=== PATIENT | male | born 1970 | race Caucasian/White ===

== ENCOUNTER 2018-12-25 23:19 | Emergency (ER) | payer SELFPAY ==
[~2018-12-25] VITALS: Ht 167.6 cm; Wt 97.5 kg
[2018-12-25 23:28] VITALS: Ht 167.6 cm; Wt 97.5 kg
[2018-12-26 00:08] LABS: BASOPHIL % 0.3 % (0-2); PLATELET COUNT 230 x10^3mcL (130-400); RED CELL DISTRIBUTION WIDTH 13.3 % (11.5-14.5)
[2018-12-26 00:22] LABS: CALCIUM 8.5 mg/dL (8.5-10.1); CARBON DIOXIDE 29.3 mmol/L (21-32); CHLORIDE SERUM 105 mmol/L (98-107); CREATININE SERUM 0.8 mg/dL (0.7-1.3); GFR1 > 60 mL/min; GLUCOSE SERUM 158 mg/dL (74-106); POTASSIUM SERUM 3.4 mmol/L (3.5-5.1); SODIUM SERUM 142 mmol/L (136-145)
[2018-12-26 00:26] LABS: ALBUMIN 3.9 g/dL (3.4-5.0); ALKALINE PHOSPHATASE 78 U/L (46-116); ALT/SGPT 89 U/L (16-63); AST/SGOT 61 U/L (15-37); BILIRUBIN TOTAL 0.7 mg/dL (0.20-1.00); LIPASE 152 IU/L (73-393); TOTAL PROTEIN, SERUM 7.8 g/dL (6.4-8.2)
[2018-12-26 01:53] VITALS: BP 146/93
== END 2018-12-26 01:53 | disposition home or self-care (01) ==
LOC: ED 23:19
PROVIDERS: Emergency Medicine
DX: K29.70 Gastritis, unspecified, without bleeding (principal)
CPT/HCPCS: 36415; J7030; Q0092

== ENCOUNTER 2019-06-03 03:30 | Emergency (ER) | payer MEDICAID ==
[~2019-06-03] VITALS: Ht 167.6 cm; Wt 93.4 kg
[2019-06-03 03:44] VITALS: Ht 167.6 cm; Wt 93.4 kg
[2019-06-03 04:22] LABS: BASOPHIL % 0.5 % (0-2); PLATELET COUNT 362 x10^3mcL (130-400)
[2019-06-03 04:40] LABS: CALCIUM 9.1 mg/dL (8.5-10.1); CARBON DIOXIDE 27.7 mmol/L (21-32); CHLORIDE SERUM 101 mmol/L (98-107); CREATININE SERUM 0.8 mg/dL (0.7-1.3); GFR1 > 60 mL/min; GLUCOSE SERUM 165 mg/dL (74-106); POTASSIUM SERUM 3.3 mmol/L (3.5-5.1); SODIUM SERUM 139 mmol/L (136-145)
[2019-06-03 04:45] LABS: ALBUMIN 3.9 g/dL (3.4-5.0); ALKALINE PHOSPHATASE 108 U/L (46-116); ALT/SGPT 117 U/L (16-63); AST/SGOT 65 U/L (15-37); BILIRUBIN TOTAL 0.71 mg/dL (0.20-1.00); LIPASE 214 IU/L (73-393)
[2019-06-03 05:01] LABS: TOTAL PROTEIN, SERUM 8.6 g/dL (6.4-8.2)
[2019-06-03 10:00] VITALS: BP 153/103
== END 2019-06-03 10:00 | disposition home or self-care (01) ==
LOC: ED 03:30
DX: K80.20 Calculus of gallbladder without cholecystitis without obstruction (principal)
CPT/HCPCS: J2270; J3490; J7030; Q0092

== ENCOUNTER 2019-08-16 11:58 | Inpatient (IN) | payer SELFPAY ==
[~2019-08-16] VITALS: Ht 170.2 cm; Wt 92.5 kg
[2019-08-16 12:23] VITALS: Ht 170.2 cm; Wt 92.5 kg
[2019-08-16 13:23] LABS: BASOPHIL % 0.2 % (0-2); PLATELET COUNT 224 x10^3mcL (130-400); RED CELL DISTRIBUTION WIDTH 13.9 % (11.5-14.5)
[2019-08-16 13:47] LABS: CALCIUM 8.7 mg/dL (8.5-10.1); CARBON DIOXIDE 31.3 mmol/L (21-32); CHLORIDE SERUM 105 mmol/L (98-107); CREATININE SERUM 0.9 mg/dL (0.7-1.3); GFR1 > 60 mL/min; GLUCOSE SERUM 174 mg/dL (74-106); POTASSIUM SERUM 3.8 mmol/L (3.5-5.1); SODIUM SERUM 140 mmol/L (136-145)
[2019-08-16 13:51] LABS: ALBUMIN 3.8 g/dL (3.4-5.0); ALKALINE PHOSPHATASE 127 U/L (46-116); ALT/SGPT 63 U/L (16-63); AST/SGOT 90 U/L (15-37); BILIRUBIN TOTAL 1.68 mg/dL (0.20-1.00); LIPASE 156 IU/L (73-393); TOTAL PROTEIN, SERUM 7.9 g/dL (6.4-8.2)
[2019-08-16 17:32] LABS: microscopic required? NO
[2019-08-16 17:39] LABS: urine erythrocyte NEGATIVE (NEGATIVE)
[2019-08-16 17:39] LABS: CHOLESTEROL/HDL RATIO 4.6
[2019-08-16 17:53] VITALS: BP 130/87
[2019-08-16 20:35] VITALS: BP 132/76
[2019-08-17 05:20] VITALS: BP 115/72
[2019-08-17 06:29] LABS: ALKALINE PHOSPHATASE 118 U/L (46-116); ALT/SGPT 118 U/L (16-63); AST/SGOT 134 U/L (15-37); BILIRUBIN TOTAL 4.8 mg/dL (0.20-1.00); CARBON DIOXIDE 31.3 mmol/L (21-32); CHLORIDE SERUM 106 mmol/L (98-107); CREATININE SERUM 0.8 mg/dL (0.7-1.3); GFR1 > 60 mL/min; GLUCOSE SERUM 108 mg/dL (74-106); MAGNESIUM 2.3 mg/dL (1.8-2.4); PHOSPHOROUS 3.2 mg/dL (2.5-4.9); POTASSIUM SERUM 3.7 mmol/L (3.5-5.1); SODIUM SERUM 140 mmol/L (136-145); TOTAL PROTEIN, SERUM 6.9 g/dL (6.4-8.2)
[2019-08-17 06:30] LABS: ALBUMIN 3.2 g/dL (3.4-5.0)
[2019-08-17 06:34] LABS: BASOPHIL % 0.4 % (0-2); PLATELET COUNT 209 x10^3mcL (130-400); RED CELL DISTRIBUTION WIDTH 14.3 % (11.5-14.5)
[2019-08-17 08:44] VITALS: BP 121/75
[2019-08-17 13:21] VITALS: BP 128/76
[2019-08-17 16:40] VITALS: BP 125/83
[2019-08-17 20:52] VITALS: BP 149/88
[2019-08-18 05:54] VITALS: BP 150/92
[2019-08-18 07:24] LABS: ALBUMIN 3.7 g/dL (3.4-5.0); ALKALINE PHOSPHATASE 171 U/L (46-116); ALT/SGPT 131 U/L (16-63); AST/SGOT 122 U/L (15-37); BILIRUBIN TOTAL 7.4 mg/dL (0.20-1.00); CALCIUM 8.4 mg/dL (8.5-10.1); CARBON DIOXIDE 32.6 mmol/L (21-32); CHLORIDE SERUM 100 mmol/L (98-107); CREATININE SERUM 0.9 mg/dL (0.7-1.3); GFR1 > 60 mL/min; GLUCOSE SERUM 98 mg/dL (74-106); MAGNESIUM 2.1 mg/dL (1.8-2.4); PHOSPHOROUS 2.9 mg/dL (2.5-4.9); POTASSIUM SERUM 3.4 mmol/L (3.5-5.1); SODIUM SERUM 138 mmol/L (136-145); TOTAL PROTEIN, SERUM 8.2 g/dL (6.4-8.2)
[2019-08-18 07:36] LABS: BASOPHIL % 0.3 % (0-2); PLATELET COUNT 212 x10^3mcL (130-400); RED CELL DISTRIBUTION WIDTH 14.1 % (11.5-14.5)
[2019-08-18 11:16] LABS: CALCIUM 8.4 mg/dL (8.5-10.1); CARBON DIOXIDE 26.3 mmol/L (21-32); CHLORIDE SERUM 101 mmol/L (98-107); CREATININE SERUM 0.9 mg/dL (0.7-1.3); GFR1 > 60 mL/min; GLUCOSE SERUM 130 mg/dL (74-106); POTASSIUM SERUM 3.5 mmol/L (3.5-5.1); SODIUM SERUM 137 mmol/L (136-145)
[2019-08-18 11:21] LABS: ALKALINE PHOSPHATASE 165 U/L (46-116); ALT/SGPT 133 U/L (16-63); AST/SGOT 143 U/L (15-37); BILIRUBIN TOTAL 8.09 mg/dL (0.20-1.00)
[2019-08-18 11:25] LABS: ALBUMIN 3.2 g/dL (3.4-5.0)
[2019-08-18 11:30] VITALS: BP 134/80
[2019-08-18 17:41] VITALS: BP 135/92
[2019-08-18 21:05] VITALS: BP 142/85
[2019-08-19 06:15] VITALS: BP 128/76
[2019-08-19 06:21] LABS: BASOPHIL % 0.2 % (0-2); PLATELET COUNT 213 x10^3mcL (130-400)
[2019-08-19 06:39] LABS: RED CELL DISTRIBUTION WIDTH 14.6 % (11.5-14.5)
[2019-08-19 06:46] LABS: MAGNESIUM 2.2 mg/dL (1.8-2.4); PHOSPHOROUS 3.4 mg/dL (2.5-4.9)
[2019-08-19 06:52] LABS: ALKALINE PHOSPHATASE 167 U/L (46-116); ALT/SGPT 175 U/L (16-63); AST/SGOT 183 U/L (15-37); BILIRUBIN TOTAL 5.6 mg/dL (0.20-1.00); CALCIUM 8.5 mg/dL (8.5-10.1); CARBON DIOXIDE 31.5 mmol/L (21-32); CHLORIDE SERUM 102 mmol/L (98-107); CREATININE SERUM 0.9 mg/dL (0.7-1.3); GFR1 > 60 mL/min; GLUCOSE SERUM 110 mg/dL (74-106); POTASSIUM SERUM 3.8 mmol/L (3.5-5.1); SODIUM SERUM 140 mmol/L (136-145); TOTAL PROTEIN, SERUM 7.3 g/dL (6.4-8.2)
[2019-08-19 06:57] LABS: ALBUMIN 3.2 g/dL (3.4-5.0)
[2019-08-19 07:13] LABS: BILIRUBIN DIRECT 4.38 mg/dL (0.0-0.2); BILIRUBIN TOTAL 5.6 mg/dL (0.20-1.00); TOTAL PROTEIN, SERUM 7.4 g/dL (6.4-8.2)
[2019-08-19 07:28] LABS: ALBUMIN 3.2 g/dL (3.4-5.0)
[2019-08-19 08:41] VITALS: BP 128/76
[2019-08-19 12:11] VITALS: BP 135/78
[2019-08-19 15:36] VITALS: BP 138/82
[2019-08-19 21:00] VITALS: BP 129/91
[2019-08-20 05:18] VITALS: BP 139/87
[2019-08-20 06:41] LABS: BASOPHIL % 0.3 % (0-2); PLATELET COUNT 214 x10^3mcL (130-400)
[2019-08-20 06:50] LABS: RED CELL DISTRIBUTION WIDTH 14.9 % (11.5-14.5)
[2019-08-20 07:11] LABS: ALKALINE PHOSPHATASE 192 U/L (46-116); ALT/SGPT 218 U/L (16-63); AST/SGOT 208 U/L (15-37); BILIRUBIN TOTAL 8.45 mg/dL (0.20-1.00); CALCIUM 8.5 mg/dL (8.5-10.1); CARBON DIOXIDE 28.5 mmol/L (21-32); CHLORIDE SERUM 101 mmol/L (98-107); CREATININE SERUM 0.7 mg/dL (0.7-1.3); GFR1 > 60 mL/min; GLUCOSE SERUM 90 mg/dL (74-106); MAGNESIUM 1.9 mg/dL (1.8-2.4); POTASSIUM SERUM 3.1 mmol/L (3.5-5.1); SODIUM SERUM 138 mmol/L (136-145); TOTAL PROTEIN, SERUM 7.3 g/dL (6.4-8.2)
[2019-08-20 07:12] LABS: ALBUMIN 3.2 g/dL (3.4-5.0)
[2019-08-20 08:19] VITALS: BP 147/82
[2019-08-20] MEDS ORDERED: IBU600 M2 PO (11:55)
[2019-08-20 12:10] VITALS: BP 149/99
[2019-08-20 13:19] VITALS: BP 149/99
[2019-08-20 16:40] VITALS: BP 159/100
== END 2019-08-20 17:49 | disposition home or self-care (01) | DRG 419 ==
LOC: ED 11:58 → MU 16:31
PROVIDERS: Emergency Medicine; Internal Medicine; Internal Medicine Gastroenterology; Surgery; ADMIT Family Medicine
PROC: 0FT44ZZ Resection of Gallbladder, Percutaneous Endoscopic Approach (ICD-10-PCS; principal; 2019-08-18 07:30)
PROC: 0F798DZ Dilation of Common Bile Duct with Intraluminal Device, Via Natural or Artificial Opening Endoscopic (ICD-10-PCS; 2019-08-19 09:30)
PROC: BF101ZZ Fluoroscopy of Bile Ducts using Low Osmolar Contrast (ICD-10-PCS; 2019-08-19 09:30)
DX: K80.43 Calculus of bile duct with acute cholecystitis with obstruction (principal); E83.51 Hypocalcemia; E80.6 Other disorders of bilirubin metabolism; R74.0 Nonspecific elevation of levels of transaminase and lactic acid dehydrogenase [LDH]; Z68.31 Body mass index [BMI] 31.0-31.9, adult
CPT/HCPCS: 43262; 94150; C1769; C1887; C2625; C9113; G0378; J0696; J1610; J2175; J2250; J2270; J2405; J2543; J3010; J3490; J7030; J7042; J7120; J7121; Q0092; Q9967